=== PATIENT | female | born 1950 | race Caucasian/White ===

== ENCOUNTER 2024-02-13 11:07 | Day surgery (SDC) | payer MEDICARE, OTHER, SELFPAY ==
[2024-02-13] VITALS (12 sets, daily range): BP systolic 131–170; BP diastolic 69–88; BMI 26.5
[2024-02-13 11:47] LABS: ALT (SGPT) 18 U/L (0-35); AST (SGOT) 28 U/L (14-36); Albumin 4.5 g/dl (3.5-5.0); Alkaline Phosphatase 70 U/L (38-126); Blood Urea Nitrogen 25 mg/dl (7-17); Calcium 9.4 mg/dl (8.4-10.2); Carbon Dioxide 28 mmol/L (22-30); Chloride 105 mmol/L (98-107); Glucose 99 mg/dl (70-99); Sodium 142 mmol/L (135-145); Total Bilirubin 0.7 mg/dl (0.2-1.3); Total Protein 6.9 g/dl (6.3-8.2); eGFR > 60.00
[2024-02-13 12:02] LABS: Hematocrit 35.1 % (37.0-47.0); Hemoglobin 11.6 g/dL (12.0-16.0); Mean Corpuscular Hgb 26.8 pg (27.0-31.0); Mean Corpuscular Volume 83.9 fL (81.0-99.0); Mean Platelet Volume 10.4 fL (7.4-10.4); Platelet Count 83 10^3/uL (130-400); Red Blood Cell Count 4.28 10^6/uL (4.20-5.40); Red Cell Dist. Width 15.9 % (11.5-14.5); White Blood Cell Count 25.7 10^3/uL (4.8-10.8)
--- NOTE | 2024-02-13 18:19 | ITS.CL.PACE ---
[facility] - Pacemaker Implant
Pacemaker Implant
Procedure Report:
Primary Wedding Planning Internship: Abdulkadir Fraire MD
Procedure Date: 02/13/2024
Name of procedure:
1. Device Revision: Dual Chamber Pacemaker
2. Pulse Generator Change
History:
See H&P for full details.
Patient is a pleasant 73-year-old female with a past medical history significant for sick sinus syndrome status post dual-chamber Medtronic pacemaker, hypertension, dyslipidemia, recent diagnosis lymphoma, history of SVT, right carotid artery
stenting who presented for pacemaker BILL/CHECKER IN. Patient presenting for elective generator change in the setting of BILL/CHECKER IN.
Methods:
After informed consent was obtained, the patient was brought to the EP laboratory in a postabsorptive, nonsedated state. Peripheral IV access was established. Prophylactic antibiotics were administered prior to incision. Continues ECG, blood
pressure, and pulse oximetry were initiated. Cardioversion patch electrodes were placed on the patient's chest and back. A grounding patch was applied to the skin. Sedation was administered by anesthesia services.
The left chest was prepared and draped in a sterile fashion. A 'time out' was called. Local anesthesia was injected in the subcutaneous tissue in the infraclavicular area. An incision was made into the chronic scar. With cautious attention to the
leads, the subcutaneous tissue was dissected the level of the device capsule. The capsule was opened, the device was explanted and disconnected from the leads. The leads were inspected and found to be free of visible defect. The leads were tested
and found to have adequate pacing and sensing parameters, consistent with pre-procedure measurements.
The pocket was flushed with antibiotic solution and hemostasis was assured. Antibiotic envelope was used. The generator was connected to the leads and placed inside the pocket. The wound was closed with 3 running layers of absorbable suture and
steri-strips were applied to the skin.
Following the procedure, the patient was taken to the recovery area in stable condition. No complications were noted.
Lead parameters and device programming:
- RA Lead (SimpleOrder, model: 4592, SN#[id number]): Sensing 3.4 mV, Pacing threshold 0.5 V at 0.4 ms, Imp 437 ohm
- RV Lead (Medtronic, model: 4092, SN#[id number]): Sensing 7.8 mV, Pacing threshold 1.75 V at 0.4 ms, Imp 399 ohm
- Device: Medtronic pacemaker model: W1 DR , SN#[id number], programmed AAI�DDD, mode switch on, lower rate 60, upper tracking rate 130 ppm
- Explanted device: Medtronic AD DR , serial number:[id number]
Recommendations:
1. Discharge home when stable with instructions for site care
2. Follow-up will be arranged in our office 7-10 days post-discharge for incision check
Shant Hogan DO
Clinical Cardiac Electrophysiology
Copy to: Abdulkadir Fraire MD
--- NOTE | 2024-02-13 20:48 | PTCARENOTE ---
Received care of patient at approx 19:25 post gene change. Patient arrived to unit w/out tele monitor. Unable to complete (handoff monitored patient) on worklist. Tele monitor applied, pt SR w/ PVCs and Apaced. Left anterior chest dressing C/D/I w/
pressure dressing in place. No drainage noted. Pt AAOx3, lungs clear throughout, and denies any pain or discomfort. Patient ambulated self to bathroom, gait steady. Denies any lightheadedness or dizziness. Voiding 150mls of yellow urine. IV removed
at discharged. Patients friend (Gregoria) at bedside. Discharge paperwork provided. Pt w/ no questions at this time. Patient aware of activity restrictions. RN transferred patient via WC to car, and belongings sent home with patient.
== END 2024-02-13 20:45 | disposition home or self-care (01) ==
LOC: CATH 11:07
PROVIDERS: ATTENDING PHYSICIAN Internal Medicine Cardiovascular Disease; FAMILY PHYSICIAN Internal Medicine; OTHER PHYSICIAN Internal Medicine Cardiovascular Disease
DX: Z45.010 Encounter for checking and testing of cardiac pacemaker pulse generator [battery] (principal); I49.5 Sick sinus syndrome; E78.5 Hyperlipidemia, unspecified; I10 Essential (primary) hypertension; Z85.72 Personal history of non-Hodgkin lymphomas; Z86.79 Personal history of other diseases of the circulatory system; Z79.899 Other long term (current) drug therapy
CPT/HCPCS: 33228; 80053; 85027; C1785

== ENCOUNTER 2024-05-02 07:48 | Day surgery (SDC) | payer MEDICARE, OTHER, SELFPAY ==
[2024-05-02] VITALS (14 sets, daily range): BP systolic 89–166; BP diastolic 63–86; BMI 28.6
--- NOTE | 2024-05-02 17:50 | ITS.CL.PN ---
[facility] - Procedure Note
Procedure
Procedure Note:
CARDIAC CATHETERIZATION REPORT
Date of Procedure: 05/02/2024
Referring: Dr. Abdulkadir Fraire MD
Indication: unstable angina, positive cardiac test
PROCEDURE(S)
1. left heart catheterization
2. coronary angiography
ACCESS: 6F right radial artery (closure: radial band)
CATHETERS
1. 6F JR4
2. 6F JL3.5
MODERATE SEDATION: 16 minutes of moderate sedation was utilized. An independent medical parasitologist was present to assist with and help manage the patient's level of consciousness and physiologic status.
ULTRASOUND GUIDED VASCULAR ACCESS (right radial artery): Ultrasound was utilized for vascular access. The vessel was visualized under ultrasound and noted to be patent. An image of the vessel was stored permanently in the patient's medical record.
Under direct ultrasound guidance, vascular access was obtained using a modified Seldinger technique and a 6 Pashto sheath was placed.
HEMODYNAMIC DATA
LV 119/9 (EDP 14) mmHg
AO 116/55 (mean 86) mmHg
CORONARY ANGIOGRAPHY
Dominance: right
LM: Large, normal
LAD: Large vessel giving rise to a large D1. There are trivial luminal irregularities only.
LCx: Large vessel giving rise to a large branching OM1. There are trivial luminal irregularities only.
RCA: Large vessel giving rise to a medium caliber RPDA and 3 small LPL branches. There are trivial luminal irregularities only.
RADIATION: dose 199 mGy; DAP 11.6 Gy*cm2; fluoroscopy time 2.7 min
CONCLUSIONS
1. nonobstructive coronary artery disease in a right dominant system
2. mildly elevated LV filling pressure and no aortic stenosis
RECOMMENDATIONS
1. expectant management after cardiac catheterization via right radial approach
2. primary prevention of coronary artery disease
3. further workup for etiology of ANOCA
Copy to: Dr. Abdulkadir Fraire MD (gaming investigator); Dr. Sheryl Reeves DO (PCP)
Signed: Jesse Moore MD, PhD
== END 2024-05-02 14:58 | disposition home or self-care (01) ==
LOC: CATH 07:48
PROVIDERS: ATTENDING PHYSICIAN Student in an Organized Health Care Education/Training Program; FAMILY PHYSICIAN Internal Medicine; OTHER PHYSICIAN Internal Medicine Cardiovascular Disease
DX: I25.110 Atherosclerotic heart disease of native coronary artery with unstable angina pectoris (principal); I10 Essential (primary) hypertension; Z79.899 Other long term (current) drug therapy
CPT/HCPCS: 99152; 76937; 93458; C1894; Q9967